=== PATIENT | female | born 1950 | race Caucasian/White ===

== ENCOUNTER 2017-09-08 13:04 | Emergency (ER) | payer OTHER ==
[2017-09-08 13:16] VITALS: TEMP 97.7; BMI 20.9
[2017-09-08 15:06] LABS: COCAINE, UR NEGATIVE ng/ml (CUTOFF=300); METHADONE, UR NEGATIVE ng/ml (CUTOFF=300); OPIATES, URI NEGATIVE ng/ml (CUTOFF=300); PHENCYCLIDINE,URINE NEGATIVE ng/ml (CUTOFF=25); URINE AMPHETAMINES NEGATIVE ng/ml (CUTOFF=500); URINE BARBITURATES NEGATIVE ng/ml (CUTOFF=200); URINE BENZODIAZEPINES NEGATIVE ng/ml (CUTOFF=200)
--- NOTE | 2017-09-08 15:34 | PDOC ---
History of Present Illness - General Chief Complaint: Weakness Stated Complaint: PALPITATIONS (A FIB) INGESTED MARIJUANA Time Seen by Provider: 09/08/17 13:49 - History of Present Illness Initial Comments: 09/08/17 15:28 "The patient is a 65 year old female with past medical history of AFib and hypercholesterolemia, who presents to the emergency department with complaints of feeling unwell after accidentally ingesting a brownie sized piece of chocolate she found in the refrigerator around 11AM this morning. 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 She states she was later informed by the homeowner that the chocolate the patient ate contained medical marijuana. Pt reports that approximately 1 hour after ingesting the marijuana chocolate, she began to feel very woozy. She denies CP/ SOB/palpitations. Denies F/C/N/V/D. Pt denies any substance use otherwise, did not ingest anything else. The patient denies chest pain, shortness of breath, headache and dizziness. The patient denies fever, chills, nausea, vomit, diarrhea and constipation. The patient denies dysuria, frequency, urgency and hematuria. Allergies: NKDA " Past History - Past Medical History Allergies/Adverse Reactions: Allergies Allergy/AdvReac Type Severity Reaction Status Date / Time Penicillins Allergy Verified 09/08/17 13:16 Home Medications: Ambulatory Orders Alendronate Sodium [Binosto] 70 mg PO DAILY 12/23/15 Atorvastatin Ca [Lipitor] 10 mg PO HS 12/23/15 Digoxin [Lanoxin -] 0.125 mg PO DAILY #30 tablet 12/25/15 Ca/D3/Mag Ox/Zinc/Chrome Plater/Harman/Bor [Calcium 600+D3 Plus Caplet] 1 each PO DAILY 02/16 Glucosamine/Methylsulfonylmeth [Glucosamine-MSM Caplet] 1 each PO DAILY Metoprolol Succinate [Toprol XL -] 25 mg PO DAILY 09/08/17 [place]-3 Fatty Acids/Fish Oil [Fish Oil 1,000 mg Capsule] 1 each PO DAILY Cardiac Disorders: Yes (palpitations) COPD: No Hypercholesterolemia: Yes - Suicide/Smoking/Psychosocial Hx Smoking History: Never smoked Have you smoked in the past 12 months: No Information on smoking cessation initiated: No Hx Alcohol Use: No Drug/Substance Use Hx: No Substance Use Type: None Review of Systems - Review of Systems Comments:: 09/08/17 15:34 """GENERAL/CONSTITUTIONAL: (+) feeling ""uncomfortable"". No fever or chills. No weakness. HEAD, EYES, EARS, NOSE AND THROAT: No change in vision. No ear pain or discharge. No sore throat. CARDIOVASCULAR: No chest pain or shortness of breath. RESPIRATORY: No cough, wheezing, or hemoptysis. GASTROINTESTINAL: No nausea, vomiting, diarrhea or constipation. GENITOURINARY: No dysuria, frequency, or change in urination. MUSCULOSKELETAL: No joint or muscle swelling or pain. No neck or back pain. SKIN: No rash NEUROLOGIC: No headache, vertigo, loss of consciousness, or change in strength/ sensation. ENDOCRINE: No increased thirst. No abnormal weight change. HEMATOLOGIC/LYMPHATIC: No anemia, easy bleeding, or history of blood clots. ALLERGIC/IMMUNOLOGIC: No hives or skin allergy. """ *Physical Exam - Vital Signs Last Vital Signs Temp Pulse Resp BP Pulse Ox 97.7 F 89 18 139/71 98 09/08/17 13:14 09/08/17 13:14 09/08/17 13:14 09/08/17 13:14 09/08/17 13:14 - Physical Exam Comments: 09/08/17 15:34 """GENERAL: Awake, alert, and fully oriented, in no acute distress HEAD: No signs of trauma EYES: PERRLA, EOMI, sclera anicteric, conjunctiva clear ENT: Auricles normal inspection, hearing grossly normal, nares patent, oropharynx clear without exudates. Moist mucosa NECK: Nontender, no stepoffs, Normal ROM, supple, no lymphadenopathy, JVD, or masses LUNGS: Breath sounds equal, clear to auscultation bilaterally. No wheezes, and no crackles HEART: Regular rate and rhythm, normal S1 and S2, no murmurs, rubs or gallops ABDOMEN: Soft, nontender, normoactive bowel sounds. No guarding, no rebound. No masses EXTREMITIES: Normal range of motion, no edema. No clubbing or cyanosis. No cords, erythema, or tenderness NEUROLOGICAL: Cranial nerves II through XII intact. 5/5 strength and sensation in all extremities, Normal speech, normal gait, normal cerebellar function SKIN: Warm, Dry, normal turgor, no rashes or lesions noted. ED Treatment Course - ADDITIONAL ORDERS Additional order review: Laboratory Results 09/08/17 14:20 Opiates Screen Negative Methadone Screen Negative Barbiturate Screen Negative Phencyclidine Screen Negative Ur Amphetamines Screen Negative MDMA (Ecstasy) Screen Negative Benzodiazepines Screen Negative Cocaine Screen Negative U Marijuana (THC) Screen Positive Medical Decision Making - Medical Decision Making 09/08/17 15:34 67 F with accidental ingestion of marijuana, presenting with mild intoxication. Pt with normal exam, normal vitals. - Metabolize in ER - Reassess 09/08/17 17:53 Pt reassessed - now feels much better. Is ambulatory in ER with steady gait. States that she no longer feels unwell. Vitals normal. Pt clinically stable for DC. *DC/Admit/Observation/Transfer Diagnosis at time of Disposition: Marijuana intoxication - Discharge Dispostion Disposition: HOME - Referrals - Patient Instructions Printed Discharge Instructions: DI for Accidental Ingestion -- Adult Additional Instructions: If you do not feel completely better by tomorrow morning, or if you experience any worsening confusion, dizziness, or any other concerning symptoms, return to the ER immediately. Otherwise, follow up with your primary doctor within 1 week. - Post Discharge Activity - Attestations Physician Attestion: 09/08/17 17:52 I, Dr. Blayne Vargas MD, attest that this document has been prepared under my direction and personally reviewed by me in its entirety. I further attest, that it accurately reflects all work, treatment, procedures and medical decision -making performed by me.
[2017-09-08 18:38] VITALS: BP 128/74; PULSE 80
--- NOTE | 2017-09-09 12:08 | EKG ---
Test Reason : Blood Pressure : / mmHG Vent. Rate : 090 BPM Atrial Rate : 090 BPM P-R Int : 164 ms QRS Dur : 080 ms QT Int : 382 ms P-R-T Axes : 066 -25 021 degrees QTc Int : 467 ms NORMAL SINUS RHYTHM POSSIBLE LEFT ATRIAL ENLARGEMENT NONSPECIFIC ST ABNORMALITY ABNORMAL ECG WHEN COMPARED WITH ECG OF 23-DEC-2015 19:36, SINUS RHYTHM HAS REPLACED ATRIAL FIBRILLATION NON-SPECIFIC CHANGE IN ST SEGMENT IN INFERIOR LEADS NON-SPECIFIC CHANGE IN ST SEGMENT IN LATERAL LEADS Confirmed by XIMENA OGLESBY MD ([id number]) on 09/09/2017 12:08:19 PM Referred By: Confirmed By:XIMENA OGLESBY MD
== END 2017-09-08 18:10 | disposition home or self-care (01) ==
LOC: JER 13:04
DX: F12.929 Cannabis use, unspecified with intoxication, unspecified (principal); E78.00 Pure hypercholesterolemia, unspecified; I48.91 Unspecified atrial fibrillation
CPT/HCPCS: 80307; 93005; 93010; 99282-25

== ENCOUNTER 2019-05-22 08:59 | Day surgery (SDC) | payer OTHER ==
[2019-05-19 16:32] VITALS: BMI 17.1
[2019-05-22 10:46] VITALS: TEMP 97.9
[2019-05-22 11:47] VITALS: BP 112/89; PULSE 69
--- NOTE | 2019-05-24 16:36 | PATH ---
Surgical Pathology Report Patient Name: MAGGI HERRERA [facility]. Rec. #: [id number] /Age/Gender: 1950 (Age: 69) / F Account: [id number] Location: U-ENDOSCOPY Taken: 05/22/2019 Received: 05/22/2019 Reported: 05/24/2019 Physicians: Jenaro Melo M.D. Specimen(s) Received A: 2ND PORTION DUODENAL BULB B: ANTRUM Clinical History Screening, hematemesis, weight loss, rectal bleeding Postoperative diagnosis: Atrophic gastritis, hemorrhoid Final Diagnosis A. SECOND PORTION OF DUODENUM AND BULB, BIOPSY: DUODENUM MUCOSA WITH ACTIVE CHRONIC DUODENITIS. B. ANTRUM, BIOPSY: GASTRIC MUCOSA WITH ACTIVE CHRONIC GASTRITIS. IMMUNOSTAIN FOR H. PYLORI IS POSITIVE. NEGATIVE FOR INTESTINAL METAPLASIA. Electronically Signed Jesi Chang M.D. Gross Description A. Received in formalin, labeled "biopsy second portion of duodenum and bulb" are 3 tucker, irregular portions of soft tissue ranging from 0.3-0.4 cm. in greatest dimension. The specimens are submitted in toto in one cassette. B. Received in formalin, labeled "biopsy antrum" are 3 tucker, irregular portions of soft tissue averaging 0.4 cm. in greatest dimension. The specimens are submitted in toto in one cassette. 05/23/2019 [facility]05/23/2019
== END 2019-05-22 11:47 | disposition home or self-care (01) ==
LOC: JASU-ENDO 08:59
PROVIDERS: ATTEND Internal Medicine Gastroenterology
PROC: 0DB68ZX Excision of Stomach, Via Natural or Artificial Opening Endoscopic, Diagnostic (ICD-10-PCS; 2019-05-22)
PROC: 0DJD8ZZ Inspection of Lower Intestinal Tract, Via Natural or Artificial Opening Endoscopic (ICD-10-PCS; principal; 2019-05-22 09:30)
DX: Z12.11 Encounter for screening for malignant neoplasm of colon (principal); K64.8 Other hemorrhoids; K21.9 Gastro-esophageal reflux disease without esophagitis; K29.40 Chronic atrophic gastritis without bleeding; I10 Essential (primary) hypertension; J44.9 Chronic obstructive pulmonary disease, unspecified
CPT/HCPCS: 43239; G0121; 88305-TC; 88342-TC